=== PATIENT | female | born 1975 | race Caucasian/White ===

== ENCOUNTER → 2016-11-15 | Outpatient (CLI) | payer MEDICAID ==
--- NOTE | 2016-11-15 19:49 | CT ---
EXAMINATION TYPE: CT chest w con DATE OF EXAM: 11/15/2016 7:29 PM COMPARISON: NONE HISTORY: Left lung mass, shortness of breath. CT DLP: 129.50 mGycm Automated exposure control for dose reduction was used. CONTRAST: CT scan of the chest is performed with IV Contrast, patient injected with 100 mL of Omnipaque 300. FINDINGS: There are 3-D post processed images. The lungs are clear of infiltrate. There is no evidence of pleural effusion or pneumothorax. There is no sign of a pulmonary mass. Heart and mediastinum are normal. There are no hilar masses. There is n o mediastinal adenopathy. There is no sign of aortic aneurysm or dissection. I see no filling defects in the pulmonary arteries. The bony thorax appears intact. IMPRESSION: Negative CT scanning of the chest. No evidence of pulmonary embolism. No evidence of a p ulmonary mass.
== END | disposition home or self-care (01) ==
LOC: RADCTMAIN 18:53
PROVIDERS: ATTEND Internal Medicine
DX: C34.92 Malignant neoplasm of unspecified part of left bronchus or lung (principal)
CPT/HCPCS: 71260; Q9967

== ENCOUNTER → 2016-11-28 | Outpatient (CLI) | payer MEDICAID ==
--- NOTE | 2016-11-29 11:35 | MM ---
Reason for exam: screening (asymptomatic). Last mammogram was performed 1 year and 3 months ago. History: Took hormonal contraceptives for 8 years. Physical Findings: A clinical breast exam by your physician is recommended on an annual basis and results should be correlated with mammographic findings. MG Screening Mammo w CAD Bilateral CC and MLO view(s) were taken. Prior study comparison: September 02, 2015, bilateral MG 3d screening mammo w/cad. March 12, 2008, bilateral diagnostic digital mammog. The breast tissue is extremely dense which could obscure a lesion on mammography. There is no dominant lesion. No significant changes when compared with prior studies. ASSESSMENT: Negative, BI-RAD 1 RECOMMENDATION: Routine screening mammogram of both breasts in 1 year.
== END | disposition home or self-care (01) ==
LOC: RADMAMWWP 06:57
PROVIDERS: ATTEND Internal Medicine
DX: Z12.31 Encounter for screening mammogram for malignant neoplasm of breast (principal)

== ENCOUNTER → 2018-01-03 | Outpatient (CLI) | payer MEDICAID ==
--- NOTE | 2018-01-07 08:07 | MM ---
Reason for exam: screening (asymptomatic). Last mammogram was performed 1 year and 1 month ago. History: Took hormonal contraceptives for 8 years. Physical Findings: A clinical breast exam by your physician is recommended on an annual basis and results should be correlated with mammographic findings. MG 3D Screening Mammo W/Cad Bilateral CC and MLO view(s) were taken. Prior study comparison: November 28, 2016, bilateral MG screening mammo w CAD. September 02, 2015, bilateral MG 3d screening mammo w/cad. The breast tissue is extremely dense which could obscure a lesion on mammography. There is no discrete abnormality. ASSESSMENT: Negative, BI-RAD 1 RECOMMENDATION: Routine screening mammogram of both breasts in 1 year.
== END | disposition home or self-care (01) ==
LOC: RADMAMWWP 08:12
PROVIDERS: ATTEND Internal Medicine
DX: Z12.31 Encounter for screening mammogram for malignant neoplasm of breast (principal)
CPT/HCPCS: 77063; 77067

== ENCOUNTER → 2018-11-27 | Outpatient (CLI) | payer MEDICAID ==
--- NOTE | 2018-11-27 13:48 | XR ---
EXAMINATION TYPE: XR chest 2V DATE OF EXAM: 11/27/2018 COMPARISON: Chest x-ray January 05, 2015. Chest CT November 15, 2016. HISTORY: Dyspnea, cough, and wheeze. TECHNIQUE: Frontal and lateral views of the chest are obtained. FINDINGS: There is no focal air space opacity, pleural effusion, or pneumothorax seen. The cardiac silhouette size is within normal limits. The osseous structures are intact. IMPRESSION: No acute cardiopulmonary process.
== END | disposition home or self-care (01) ==
LOC: RADXRYALE 11:46
PROVIDERS: ATTEND Internal Medicine
DX: J20.9 Acute bronchitis, unspecified (principal)
CPT/HCPCS: 71046

== ENCOUNTER → 2019-03-18 | Outpatient (CLI) | payer MEDICAID ==
--- NOTE | 2019-03-18 13:18 | MM ---
Reason for exam: screening (asymptomatic). Last mammogram was performed 1 year and 2 months ago. History: Took hormonal contraceptives for 8 years. Physical Findings: A clinical breast exam by your physician is recommended on an annual basis and results should be correlated with mammographic findings. MG 3D Screening Mammo W/Cad Bilateral CC and MLO view(s) were taken. Prior study comparison: January 03, 2018, bilateral MG 3d screening mammo w/cad. November 28, 2016, bilateral MG screening mammo w CAD. The breast tissue is extremely dense which could obscure a lesion on mammography. There is no discrete abnormality. ASSESSMENT: Negative, BI-RAD 1 RECOMMENDATION: Routine screening mammogram of both breasts in 1 year.
== END | disposition home or self-care (01) ==
LOC: RADMAMWWP 08:02
PROVIDERS: ATTEND Internal Medicine
DX: Z12.31 Encounter for screening mammogram for malignant neoplasm of breast (principal)
CPT/HCPCS: 77063; 77067

== ENCOUNTER → 2020-01-05 | Outpatient (CLI) | payer MEDICAID ==
--- NOTE | 2020-01-05 14:41 | XR ---
EXAMINATION TYPE: XR ankle complete RT DATE OF EXAM: 01/05/2020 COMPARISON: NONE HISTORY: Pain FINDINGS: Three views of the ankle demonstrate the ankle mortise to be intact and symmetric. The joint spaces are preserved. The osseous structures are intact. Well-corticated density adjacent to the cuboid kimani ne likely related to an accessory ossicle. Tiny calcaneal spur noted. IMPRESSION: 1. No definite acute fracture or dislocation, if symptoms persist follow-up study in 7 to 10 days wou ld be suggested. If symptoms persist correlate with MRI.
== END | disposition home or self-care (01) ==
LOC: RADXRYALE 14:27
PROVIDERS: ATTEND Physician Assistant Medical
DX: M25.571 Pain in right ankle and joints of right foot (principal)

== ENCOUNTER 2020-01-20 07:20 | Day surgery (SDC) | payer MEDICAID ==
[2020-01-19 10:20] VITALS: BMI 21.2
[2020-01-20] MEDS ORDERED: LACTATED RINGERS 1,000 ML IV ONE (07:37)
[2020-01-20 07:38] VITALS: TEMP 97.7
[2020-01-20] MEDS ORDERED: LACTATED RINGERS 1,000 ML IV SCH (07:40)
[2020-01-20] MEDS ORDERED: LIDOCAINE 1% INJ 10MG/ML (20 ML MDV) ONE (08:08)
[2020-01-20] MEDS ORDERED: PROPOFOL 10 MG/ML 20 ML VIAL IV ONE (08:08)
--- NOTE | 2020-01-20 08:19 | P.PCN ---
Date of Procedure: 01/20/20 Procedure(s) Performed: BRIEF HISTORY: Patient is a 44-year-old, pleasant, white female scheduled for an upper endoscopy as a part of evaluation long-standing history of GERD and intermittent dysphagia to solids for the last 3 months duration. . PROCEDURE PERFORMED: Esophagogastroduodenoscopy with biopsy. PREOPERATIVE DIAGNOSIS: GERD/dysphagia to solids. IV sedation per anesthesia. PROCEDURE: After informed consent was obtained, the patient was brought into the endoscopy unit. IV sedation was administered by Anesthesia under continuous monitoring. Initially the Olympus GIF-140 video endoscope was inserted into the mouth. Esophagus intubated without any difficulty. It was gradually advanced into the stomach and duodenum and carefully examined. The bulb and the second part of the duodenum appeared normal. The scope at this time was withdrawn to the stomach, adequately insufflated with air, and upon careful examination, mucosa of the antrum, had mild gastritis and biopsies were done from this area. The body, cardia and the fundus appeared normal. The scope was then withdrawn into the esophagus. The GE junction was located at 39 cm from the incisors. The esophagus appeared normal. there was no evidence of esophageal stricture. There were no erosions or ulcerations seen, multiple biopsies were done from the distal esophagus and the patient tolerated the procedure well. IMPRESSION: 1. Mild antral gastritis . 2. Normal appearing esophagus with no evidence of esophageal stricture or esophagitis. . RECOMMENDATIONS: The findings of this examination were discussed with the patient. She was advised to follow with the biopsy results. She will continue with Protonix 40 mg daily and continue to follow antireflux measures. she will be seen in office in 6 weeks.
[2020-01-20 08:38] VITALS: BP 122/72; PULSE 63; RESP 16
== END 2020-01-20 09:01 | disposition home or self-care (01) ==
LOC: ORWHC2ENDO 07:20
PROVIDERS: ATTEND Internal Medicine Gastroenterology
DX: K29.70 Gastritis, unspecified, without bleeding (principal); K21.9 Gastro-esophageal reflux disease without esophagitis; I73.9 Peripheral vascular disease, unspecified; Z88.2 Allergy status to sulfonamides; Z79.82 Long term (current) use of aspirin; Z79.899 Other long term (current) drug therapy; Z98.890 Other specified postprocedural states
CPT/HCPCS: 81025; 43239; J2001; J2704; 88305

== ENCOUNTER → 2020-06-13 | Outpatient (CLI) | payer MEDICAID ==
--- NOTE | 2020-06-13 17:27 | XR ---
EXAMINATION TYPE: XR ankle complete LT DATE OF EXAM: 06/13/2020 COMPARISON: NONE HISTORY: 44-year-old female left ankle pain, lateral malleolus after falling 3 weeks ago. TECHNIQUE: 3 views FINDINGS: Mild lateral and anterior soft tissue swelling. Ankle mortise is congruent. Talar dome is intact. Sma ll anterior tibiotalar joint effusion. No acute fracture, subluxation, dislocation. Small delineation to the Achilles tendon. Subtalar joint is aligned. IMPRESSION: Mild lateral and anterior soft tissue swelling. No acute osseous abnormality seen.
== END | disposition home or self-care (01) ==
LOC: RADXRYALE 16:55
PROVIDERS: ATTEND Physician Assistant Medical
DX: M79.89 Other specified soft tissue disorders (principal)

== ENCOUNTER → 2024-12-04 | Day surgery (SDC) | payer MEDICAID ==
[~2024-12-04] MED LIST: LACTATED RINGERS 1,000 ML IV SCH; PROPOFOL 10 MG/ML 20 ML VIAL IV ONE
[2024-12-04] MEDS: IV FLUID CONTINUATION 1,000 ML IV ONE (12:49)
[2024-12-04 13:12] VITALS: TEMP 98.1
--- NOTE | 2024-12-04 14:13 | P.PCN ---
Date of Procedure: 12/04/24 Procedure(s) Performed: BRIEF HISTORY: Patient is a 48-year-old pleasant white female scheduled for an elective colonoscopy as a part of screening for colon cancer. PROCEDURE PERFORMED: Colonoscopy. PREOPERATIVE DIAGNOSIS: Screening for colon cancer. IV sedation per Anesthesia. PROCEDURE: After informed consent was obtained, the patient, was brought into the endoscopy unit. IV sedation was administered by Anesthesia under continuous monitoring. Digital rectal examination was normal. Initially the Olympus CF-160 flexible video colonoscope was then inserted in the rectum, gradually advanced into the cecum without any difficulty. Careful examination was performed as the scope was gradually being withdrawn. Ileocecal valve and the appendiceal orifice were visualized and appeared normal. Prep was excellent. Mucosa of the cecum, ascending colon, transverse colon, descending colon, sigmoid colon, and rectum appeared normal. Retroflexion was performed in the rectum and no lesions were seen. The patient tolerated the procedure well. IMPRESSION: Normal-appearing colon from rectum to cecum with no evidence of colorectal neoplasia. RECOMMENDATIONS: Findings of this examination were discussed with the patient as well as her family. She was advised to have repeat screening colonoscopy in 10 years..
[2024-12-04 14:32] VITALS: RESP 12
[2024-12-04 14:46] VITALS: BP 125/76; PULSE 72
== END ==
LOC: ORWHC2ENDO 12:18
PROVIDERS: ATTEND Internal Medicine Gastroenterology
DX: Z12.11 Encounter for screening for malignant neoplasm of colon (principal)
CPT/HCPCS: 81025; 45378; J2704